=== PATIENT | male | born 1930 | race Caucasian/White ===

== ENCOUNTER 2016-05-09 08:28 | Inpatient (IN) | payer MEDICARE, OTHER ==
[2016-05-09 09:05] LABS: BASO % 0.1 % (0.2-1.0); EOS # 0.1 (0.0-0.5); EOS % 0.6 % (0.9-2.9); HEMATOCRIT 41.7 % (32.0-52.0); HEMOGLOBIN 13.2 gm/l (14.0-18.0); IMM NEUT # 0.1 K/mm3 (0-0.2); IMM NEUT% 0.4 % (0-1); LYMPH % 6.5 % (15-45); MEAN CELL VOLUME 86.9 fl (80.0-94.0); MEAN CORPUSCULAR HEMOGLOBIN 27.5 pg (27.0-31.0); MEAN CORPUSCULAR HGB CONC 31.7 g/dl (33.0-37.0); MEAN PLATELET VOLUME 10.8 fl (7.4-10.4); MONO # 0.9 (0.0-0.8); MONO % 5.9 % (4-12); NEUT % 86.5 % (43-75); PLATELET COUNT 250 K/mm3 (130-400); RED CELL DISTRIBUTION WIDTH 15.3 % (11.5-14.5)
[2016-05-09] MEDS ORDERED: LACTATED RINGERS 3,000 ML ONE (09:11)
[2016-05-09 09:19] LABS: ALB/GLOB RATIO 0.8 (>1.0); ALBUMIN 3.3 gm/dL (3.5-5.7); CALCIUM 8.7 mg/dL (8.6-10.3)
--- NOTE | 2016-05-09 09:35 | RAD ---
Exam: Two-view chest COMPARISON: 11/24/2015, 01/28/2014 and 06/08/2013 INDICATION: Fever, cough. History of COPD. Findings: AP and lateral views of the chest were obtained. Lung volumes are low on today's exam. Cardiac silhouette does not appear enlarged. There are chronic bibasilar predominant interstitial opacities, right greater than left, and bibasilar predominant. These appear slightly increased although this may be artifact, related to difference in aeration. There is some thickening of the fissures without pleural effusion. There is minor left basilar atelectasis. There is mild asymmetric groundglass opacity within the right lower lobe without consolidation. Bones of the chest wall within normal limits. IMPRESSION: Mild asymmetric groundglass opacity within the right lower lobe compared which is more pronounced compared with the 11/24/2015 exam which does raise concern for pneumonia given patient history. This is superimposed on chronic pulmonary fibrosis. No pleural effusion.
[2016-05-09] MEDS ORDERED: CEFTRIAXONE 1 GRAM DUPLEX 50 ML IV ONE ×2 (09:58→16:00)
[2016-05-09 10:03] LABS: SPECIFIC GRAVITY 1.015 (1.001-1.030); URINE BILIRUBIN NEGATIVE (NEGATIVE); URINE BLOOD TRACE (NEGATIVE); URINE GLUCOSE (UA) NEGATIVE (NEGATIVE); URINE LEUKOCYTE ESTERASE NEGATIVE (NEGATIVE); URINE NITRITE NEGATIVE (NEGATIVE); URINE PROTEIN 1+ (NEGATIVE); URINE UROBILINOGEN NORMAL (0-1 mg/dl)
[2016-05-09] MEDS ORDERED: AZITHROMYCIN 500 MG VIAL ONE (10:03)
[2016-05-09] MEDS ORDERED: SODIUM CHLORIDE 0.9% 250 ML IV ONE (10:03)
[2016-05-09 10:05] LABS: URINE APPEARANCE CLEAR; URINE COLOR YELLOW
[2016-05-09 10:12] LABS: URINE AMORPHOUS SEDIMENT FEW; URINE BACTERIA FEW; URINE MUCUS 1+; URINE WBC 0-1 /hpf
[2016-05-09] MEDS ORDERED: MENTHOL/CETYLPYRD 1 EACH LOZENGE PO PRN (12:25)
[2016-05-09] MEDS ORDERED: MAGNESIUM HYDROXIDE 30 ML UDCUP PO PRN ×2 (12:25→15:14)
[2016-05-09] MEDS ORDERED: BISACODYL 10 MG SUP PR PRN (12:25)
[2016-05-09] MEDS ORDERED: BLISTEX LIPSTICK 1 EACH TP PRN (12:25)
[2016-05-09] MEDS ORDERED: BISACODYL 5 MG TABLET.EC PO PRN (12:25)
[2016-05-09] MEDS: ENOXAPARIN SODIUM 40 MG/0.4 ML SYRINGE SUB-Q SCH (13:29)
[2016-05-09] MEDS ORDERED: ACETAMINOPHEN 325 MG TABLET PO PRN (15:14)
[2016-05-09] MEDS ORDERED: MAG HYDROX/AL HYDROX/SIMETH 30 ML UDCUP PO PRN (15:14)
[2016-05-09] MEDS ORDERED: HALOPERIDOL 0.5 MG TABLET PO PRN (15:14)
[2016-05-09] MEDS ORDERED: ALBUTEROL/IPRATROPIUM 2.5/0.5 MG 3 ML/EACH DOSE NEB PRN (15:24)
[2016-05-09] MEDS: POTASSIUM CHLORIDE 10 MEQ TAB.SR PO SCH (15:36)
[2016-05-09] MEDS: FUROSEMIDE 20 MG TABLET PO SCH (15:36)
[2016-05-09] MEDS: SODIUM CHLORIDE 0.9% 100 ML IV PRN (16:50)
[2016-05-09] MEDS ORDERED: SODIUM CHLORIDE 0.9% FLUSH 10 ML ONE (17:25)
[2016-05-09 17:43] LABS: TROPONIN I 0.02 ng/ml (0.0-0.06)
[2016-05-09 17:52] LABS: THYROID STIMULATING HORMONE 2.56 uIU/ml (0.34-5.60)
--- NOTE | 2016-05-09 18:32 | HP ---
ZAYNAB ZAVALA [id number] DATE OF ADMISSION: 05/09/2016 CHIEF COMPLAINT: Altered mental status. HISTORY OF PRESENT ILLNESS: The patient is an 85-year-old male reported to have altered mental status, today was referred to the ER, and in the ER was noted to have some change to his chest x-ray and thought to have possible pneumonia, along with his elevated white count. He received antibiotics in the ER. At this time he reports feeling well and has just finished his lunch. He was previously hospitalized on 01/28/2014 for confusion and had a urinary tract infection at that time. PAST MEDICAL HISTORY: Taken from outpatient records indicates: 1. Chronic kidney disease Stage-3. 2. Dementia. 3. Diastolic dysfunction. 4. Mildly elevated glucose. 5. Hypertension. 6. Hyperlipidemia. 7. Hypothyroidism. 8. Pulmonary fibrosis. PAST SURGICAL HISTORY: Negative, except for cataracts. ALLERGIES: No known drug allergies. MEDICATIONS: Taken from his MAR show: 1. Maalox PRN. 2. Acetaminophen 650 mg every four hours as needed for headache, pain or fever. 3. Haloperidol 2 mg two by mouth as needed loose stools. 4. Yepv-vl-aidutadf as needed. 5. Haloperidol 0.5 mg every 12 hours as needed for severe agitation. 6. Levothyroxine 50 mcg daily. 7. Donepezil 10 mg daily. 8. Furosemide 20 mg daily on Saturday, Saturday and Saturday. 9. Doxazosin 2 mg by mouth at bedtime. 10. Pravastatin 20 mg by mouth at bedtime. 11. Three liters of oxygen at all times. 12. Potassium chloride 10 mEq by mouth on Saturday, Saturday and Saturday. 13. Acetaminophen 650 mg scheduled three times a day. 14. Advair 250/50 one puff twice a day. 15. Haloperidol 0.5 mg by mouth twice a day schedule. CODE STATUS: He is DNR status. 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 He is a resident at the Memory Care Unit at [facility]. FAMILY HISTORY: Not obtained. REVIEW OF SYSTEMS: At this time he reports his eyes are okay. Ears are okay. Nose is okay. Mouth is okay. He denies cough. Denies heart complaints. Denies chest pain. Denies stomach complaints. Denies constipation. Denies diarrhea. Denies arm or leg complaints. Denies urinary complaints. Review of the IBEX note from the ER indicates that there is a report of low blood pressure and fever at the care facility, with a cough. PHYSICAL EXAMINATION: VITAL SIGNS: In the ER on presentation he had a temperature of 99.4, blood pressure 91/55, pulse 91 and respirations 20. At follow-up on the floor his temperature is 98.6, pulse 56, blood pressure 130/63, respirations 17, and 96% on 2.5 liters. HEENT: His head is normocephalic, atraumatic. Eyes are unremarkable. Ears have a hearing aid present on the left, absent on the right. The tympanic membrane is grossly unremarkable on the right, some cerumen is noted. Nose is unremarkable. Oropharynx, has dentures. NECK: Supple, without masses or adenopathy. LUNGS: Have some crackles noted and some decreased air movement throughout. HEART: Regular rate and rhythm, without murmur. ABDOMEN: Soft, nontender and nondistended. GENITOURINARY: Exam is deferred. EXTREMITIES: Lower extremities without edema. Heels are unremarkable. Arms are unremarkable. Pulses are good throughout. Color is good. Capillary refill is good throughout. NEUROLOGIC: Cranial nerves are intact. Speech is appropriate. He is [id number] and his ability to give a history appears to be quite limited by his dementia. He is not oriented, but is very pleasant, is able to feed himself well, and does a very good job finishing-off his lunch. LABS: White count 15.0, hemoglobin 13.2, hematocrit 41.7 and platelets 250. Lactate 0.8. Chemistry profile with a sodium of 136, potassium 4.2, BUN of 24, creatinine 1.3, glucose 132, bilirubin 0.5, AST of 11, ALT of 8, alkaline phosphatase 100, albumin 3.3 and globulin 4.0. Urinalysis 1+ protein, negative glucose, negative ketones, negative leukocyte esterase, negative nitrite, 2-3 red cells, 0-1 white cells, 2-4 epithelial cells and few bacteria. Influenza testing is negative. IMAGING: Chest x-ray shows mild asymmetric ground-glass opacity within the right lower lobe compared with previous is more pronounced versus 11/24/2015, which does raise concern for pneumonia given the patient's history. This is superimposed on chronic pulmonary fibrosis. No pleural effusion. ASSESSMENT: 1. Suspected altered mental status with elevated white count and possible chest x-ray changes showing a community-acquired pneumonia, bacterial cause, unspecified organism. We will be treating his community-acquired pneumonia with Rocephin, and although he received azithromycin initially, we will be using doxycycline due to his use of Haldol. At this moment he appears to be stable. Will consider for a CT of chest to follow-up on his pulmonary fibrosis. 2. Dementia. Continue medications. 3. Pulmonary fibrosis. Will continue on medications and use nebs as needed. 4. DNR status. This is reviewed and ordered. 5. Hypertension. Will continue on medications. 6. History of chronic kidney disease. His creatinine is 1.3, with a GFR of 53, indicating Stage-3 chronic kidney disease. 7. He has a history of diastolic CHF. Will be checking a BNP, as well as a troponin. 8. History of elevated glucose. Previous A1C was 6.3 just this month. 9. Venous thrombosis prophylaxis. Anticipate use of enoxaparin. cc: Dr. Michael Arzate, BENJI
[2016-05-09] MEDS: FLUTICASONE/SALMETEROL 250/50 14 PUFFS/DISK IH SCH (19:38)
[2016-05-09] MEDS: PRAVASTATIN SODIUM 20 MG TABLET PO SCH (20:01)
[2016-05-09] MEDS: DOXYCYCLINE HYCLATE 100 MG TABLET PO SCH (20:01)
[2016-05-09] MEDS: DOCUSATE SODIUM 100 MG CAPSULE PO SCH (20:01)
[2016-05-10 06:42] LABS: ABSOLUTE NEUTROPHIL COUNT 7.4 K/mm3 (1.8-7.7); BASO % 0.4 % (0.2-1.0); EOS # 0.1 (0.0-0.5); EOS % 1.4 % (0.9-2.9); HEMATOCRIT 35.5 % (32.0-52.0); HEMOGLOBIN 11.4 gm/l (14.0-18.0); IMM NEUT% 0.4 % (0-1); LYMPH # 1.6 (1.0-4.8); LYMPH % 15.2 % (15-45); MEAN CELL VOLUME 86.2 fl (80.0-94.0); MEAN CORPUSCULAR HEMOGLOBIN 27.7 pg (27.0-31.0); MEAN CORPUSCULAR HGB CONC 32.1 g/dl (33.0-37.0); MEAN PLATELET VOLUME 11.1 fl (7.4-10.4); MONO # 1.1 (0.0-0.8); MONO % 10.8 % (4-12); NEUT % 71.8 % (43-75); PLATELET COUNT 231 K/mm3 (130-400); RED CELL DISTRIBUTION WIDTH 15.1 % (11.5-14.5)
[2016-05-10 07:03] LABS: CALCIUM 8.3 mg/dL (8.6-10.3)
[2016-05-10] MEDS: LEVOTHYROXINE SODIUM 50 MCG TABLET PO SCH (07:41)
[2016-05-10] MEDS: DOCUSATE SODIUM 100 MG CAPSULE PO SCH ×3 (08:09→20:35)
[2016-05-10] MEDS: FLUTICASONE/SALMETEROL 250/50 14 PUFFS/DISK IH SCH ×3 (08:09→19:17)
[2016-05-10] MEDS: DONEPEZIL HCL 5 MG TABLET PO SCH (08:10)
[2016-05-10] MEDS: DOXYCYCLINE HYCLATE 100 MG TABLET PO SCH ×2 (08:10→20:19)
[2016-05-10] MEDS: DOXAZOSIN MESYLATE 2 MG TABLET PO SCH (08:19)
[2016-05-10] MEDS ORDERED: HALOPERIDOL 0.5 MG TABLET PO SCH (09:00)
[2016-05-10] MEDS ORDERED: LOPERAMIDE HCL 2 MG CAPSULE PO PRN (09:00)
[2016-05-10 10:14] VITALS: BMI 37.5
[2016-05-10] MEDS: CEFTRIAXONE 2 GRAM DUPLEX 50 ML IV SCH (10:19)
--- NOTE | 2016-05-10 11:55 | PDOC43 ---
- Subjective Chief Complaint: pneumonia Somnolent this AM. No problems overnight as per RN. - Objective Vital Signs Temperature 100.1 F 05/10/16 07:54 Pulse Rate 74 05/10/16 08:15 Respiratory Rate 19 05/10/16 07:54 Blood Pressure 133/61 05/10/16 08:15 O2 Saturation by Pulse Oximetry 91 05/10/16 07:54 Oxygen Delivery Method Nasal Cannula Oxygen Flow Rate 3 Intake and Output 05/09/16 05/10/16 05/11/16 06:59 06:59 06:59 Intake Total 2450 Output Total 1127 Balance 1323 General: Other (Somnolent but NAD.) HEENT: Atraumatic Lungs: Other (Scattered rales and distant sounds.) Cardiovascular: Regular Rate and Rhythm Abdomen: Soft, Normal Bowel Sounds, Non-Distended, No Rebounding Extremities: Normal Pulses, No Edema Laboratory 05/10/16 06:00 05/10/16 06:00 05/10/16 06:00 RBC 4.12 L MCHC 32.1 L RDW 15.1 H Estimated GFR 58 L Calcium 8.3 L Current Medications: Current meds reviewed in EMR. - Problems: Assessment/Plan (1) Bacterial pneumonia Status: Acute Assessment/Plan: Appears to have RLL pna superimposed on severe COPD/pulm fibrosis. Baseline on 3L O2. Somnolent after receiving haldol this AM. Was doing well otherwise before haldol tx. Concern for possible medication related oversedation leading to aspiration pna. Will con't rocephin/doxy and add flagyl and decrease scheduled haldol. Supportive care otherwise. (2) Dementia Qualifiers: Dementia type: unspecified type Dementia behavioral disturbance: with behavioral disturbance Qualifier Code: (F03.91) Unspecified dementia with behavioral disturbance Status: Chronic Assessment/Plan: On haldol chronically- concern for oversedation as above. Will hold for now. Supportive care. (3) Pulmonary fibrosis Status: Chronic Assessment/Plan: Chronic severe O2 dependant COPD/Fibrosis. As above. (4) HTN (hypertension) Qualifiers: Hypertension type: essential hypertension Qualifier Code: (I10) Essential (primary) hypertension Status: Chronic Assessment/Plan: Stable. Con't usual meds. (5) Hypothyroidism Qualifiers: Hypothyroidism type: unspecified Qualifier Code: (E03.9) Hypothyroidism , unspecified Status: Chronic Assessment/Plan: Stable. Con't usual meds. VTE Prophylaxis: Lovenox Disposition: Unknown.
[2016-05-10] MEDS ORDERED: ALBUTEROL NEB 2.5 MG/3 ML VIAL.NEB NEB PRN (11:57)
[2016-05-10] MEDS ORDERED: PUMP TUBING ONE (12:44)
[2016-05-10] MEDS: ENOXAPARIN SODIUM 40 MG/0.4 ML SYRINGE SUB-Q SCH (12:52)
[2016-05-10] MEDS: METRONIDAZOLE 500 MG/NS 100 ML 500 MG in Premix (NS) 100 ml 1 EACH IV SCH ×2 (12:53→20:35)
[2016-05-10] MEDS: SODIUM CHLORIDE 0.9% 100 ML IV PRN (12:53)
[2016-05-10] MEDS: PRAVASTATIN SODIUM 20 MG TABLET PO SCH (20:18)
[2016-05-11] MEDS: METRONIDAZOLE 500 MG/NS 100 ML 500 MG in Premix (NS) 100 ml 1 EACH IV SCH ×3 (04:36→20:20)
[2016-05-11 05:55] LABS: HEMATOCRIT 35.4 % (32.0-52.0); HEMOGLOBIN 11.3 gm/l (14.0-18.0); MEAN CELL VOLUME 86.3 fl (80.0-94.0); MEAN CORPUSCULAR HEMOGLOBIN 27.6 pg (27.0-31.0); MEAN CORPUSCULAR HGB CONC 31.9 g/dl (33.0-37.0); RED CELL DISTRIBUTION WIDTH 14.9 % (11.5-14.5)
[2016-05-11 06:21] LABS: CALCIUM 8.3 mg/dL (8.6-10.3)
[2016-05-11] MEDS: LEVOTHYROXINE SODIUM 50 MCG TABLET PO SCH (07:42)
--- NOTE | 2016-05-11 09:32 | PDOC43 ---
- Subjective Chief Complaint: pneumonia Baseline MS all day yesterday as per RN and family. This AM is sleepy but arousable- suspect baseline. Subjective: Denies Chest Pain, Denies Abdominal Pain, Denies Nausea, Denies Vomiting, Denies Fever, Denies Chills - Objective Vital Signs Temperature 98.2 F 05/11/16 07:19 Pulse Rate 65 05/11/16 07:19 Respiratory Rate 20 05/11/16 07:30 Blood Pressure 100/55 05/11/16 07:19 O2 Saturation by Pulse Oximetry 94 05/11/16 07:19 Oxygen Delivery Method Nasal Cannula Oxygen Flow Rate 3 Intake and Output 05/10/16 05/11/16 05/12/16 06:59 06:59 06:59 Intake Total 2450 855 Output Total 1127 1235 Balance 1323 -380 General: Other (Sleepy but arousable. Answers questions.) Lungs: Other (Distant sounds.) Cardiovascular: Regular Rate and Rhythm Abdomen: Soft, Normal Bowel Sounds, Non-Distended, No Tenderness Extremities: Normal Pulses, No Edema Laboratory 05/11/16 05:30 05/11/16 05:30 Current Medications: Current meds reviewed in EMR. - Problems: Assessment/Plan (1) Bacterial pneumonia Status: Acute Assessment/Plan: RLL pna superimposed on severe COPD/pulm fibrosis. Baseline on 3L O2. Still holding usual haldol and pt at presumed baseline MS- sleepy in AM today. Concern for possible medication related oversedation leading to aspiration pna. Will con't rocephin/doxy/flagyl. Supportive care otherwise. (2) Dementia Qualifiers: Dementia type: unspecified type Dementia behavioral disturbance: with behavioral disturbance Qualifier Code: (F03.91) Unspecified dementia with behavioral disturbance Status: Chronic Assessment/Plan: On haldol chronically- concern for oversedation as above. Will hold for now. Supportive care. (3) Pulmonary fibrosis Status: Chronic Assessment/Plan: Chronic severe O2 dependant COPD/Fibrosis. As above. (4) HTN (hypertension) Qualifiers: Hypertension type: essential hypertension Qualifier Code: (I10) Essential (primary) hypertension Status: Chronic Assessment/Plan: Stable. Con't usual meds. (5) Hypothyroidism Qualifiers: Hypothyroidism type: unspecified Qualifier Code: (E03.9) Hypothyroidism , unspecified Status: Chronic Assessment/Plan: Stable. Con't usual meds. VTE Prophylaxis: Lovenox Disposition: Anticipate return to memory care in 1-2 days.
[2016-05-11] MEDS: SODIUM CHLORIDE 0.9% 100 ML IV PRN (09:46)
[2016-05-11] MEDS: DOXYCYCLINE HYCLATE 100 MG TABLET PO SCH ×2 (09:47→20:20)
[2016-05-11] MEDS: DOXAZOSIN MESYLATE 2 MG TABLET PO SCH (09:47)
[2016-05-11] MEDS: DOCUSATE SODIUM 100 MG CAPSULE PO SCH ×2 (09:47→20:21)
[2016-05-11] MEDS: DONEPEZIL HCL 5 MG TABLET PO SCH (09:47)
[2016-05-11] MEDS: FLUTICASONE/SALMETEROL 250/50 14 PUFFS/DISK IH SCH ×2 (09:54→20:21)
[2016-05-11] MEDS: CEFTRIAXONE 2 GRAM DUPLEX 50 ML IV SCH (09:58)
[2016-05-11 10:08] LABS: ARTERIAL BLOOD GAS BASE EXCESS 1.7 mmol/L (-2.0-2.0); ARTERIAL BLOOD GAS HCO3 25.6 mmol/L (22.0-28.0); ARTERIAL BLOOD GAS PCO2 37.7 mmHg (35.0-45.0); ARTERIAL BLOOD GAS pH 7.449 (7.350-7.450)
--- NOTE | 2016-05-11 11:11 | PDOC36 ---
Provider Note Subject: addendum Note: Patient uses O2 at home chronically, so would presume pt has chronic respiratory failure.
[2016-05-11] MEDS ORDERED: FLUTICASONE/SALMETEROL 250/50 14 PUFFS/DISK IH SCH (11:15)
[2016-05-11] MEDS ORDERED: PUMP TUBING ONE (13:18)
[2016-05-11] MEDS: ENOXAPARIN SODIUM 40 MG/0.4 ML SYRINGE SUB-Q SCH (13:31)
[2016-05-11] MEDS: FUROSEMIDE 20 MG TABLET PO SCH (14:47)
[2016-05-11] MEDS: POTASSIUM CHLORIDE 10 MEQ TAB.SR PO SCH (14:47)
[2016-05-11] MEDS: PRAVASTATIN SODIUM 20 MG TABLET PO SCH (20:21)
[2016-05-12] MEDS ORDERED: SODIUM CHLORIDE 0.9% 1,000 ML IV SCH (03:00)
[2016-05-12] MEDS: METRONIDAZOLE 500 MG/NS 100 ML 500 MG in Premix (NS) 100 ml 1 EACH IV SCH ×3 (05:44→20:43)
[2016-05-12] MEDS: ACETAMINOPHEN 325 MG TABLET PO PRN ×2 (06:31→19:40)
[2016-05-12] MEDS: LEVOTHYROXINE SODIUM 50 MCG TABLET PO SCH (07:12)
[2016-05-12] MEDS: DOXAZOSIN MESYLATE 2 MG TABLET PO SCH (08:52)
[2016-05-12] MEDS: DOCUSATE SODIUM 100 MG CAPSULE PO SCH ×2 (08:57→20:43)
[2016-05-12] MEDS: DONEPEZIL HCL 5 MG TABLET PO SCH (08:57)
[2016-05-12] MEDS: FLUTICASONE/SALMETEROL 250/50 14 PUFFS/DISK IH SCH ×2 (08:57→20:48)
[2016-05-12] MEDS: DOXYCYCLINE HYCLATE 100 MG TABLET PO SCH ×2 (08:57→20:43)
[2016-05-12] MEDS: CEFTRIAXONE 2 GRAM DUPLEX 50 ML IV SCH (09:33)
[2016-05-12] MEDS: SODIUM CHLORIDE 0.9% 100 ML IV PRN (12:39)
[2016-05-12] MEDS: ENOXAPARIN SODIUM 40 MG/0.4 ML SYRINGE SUB-Q SCH (12:39)
--- NOTE | 2016-05-12 16:31 | PDOC43 ---
- Subjective Chief Complaint: pneumonia per family no new issues. pt eating a bit today, better color and more alert. they note he appears more himself. no new complaints. no asking for nebs Subjective: Reports Pain Tolerable, Reports Tolerating Diet Well, Reports Urinating Without Difficulty, Denies Adequate Oral Intake, Denies Shortness of Breath, Denies Cough, Denies Chest Pain, Denies Abdominal Pain, Denies Nausea, Denies Vomiting, Denies Fever, Denies Chills - Objective Vital Signs Temperature 98.0 F 05/12/16 14:16 Pulse Rate 64 05/12/16 14:16 Respiratory Rate 16 05/12/16 14:16 Blood Pressure 114/62 05/12/16 14:16 O2 Saturation by Pulse Oximetry 95 05/12/16 14:16 Oxygen Delivery Method Nasal Cannula Oxygen Flow Rate 4 Intake and Output 05/10/16 05/11/16 05/12/16 23:59 23:59 23:59 Intake Total 290 330 2291 Output Total 1267 1469 531 Balance -327 -751 1024 General: Alert, Cooperative, No Oriented x3 (nonverbal today), No Acute Distress HEENT: Atraumatic, Mucous membr. moist/pink Lungs: Diminished at Bases, No Clear to Auscultation Bilaterally (diffuse wheezes), No Normal Air Movement Cardiovascular: Regular Rate and Rhythm, Normal S1, Normal S2, No Murmur Abdomen: Soft, Normal Bowel Sounds, Non-Distended, No Tenderness Extremities: No Cyanosis, No Edema, No Tenderness Skin: Warm, Dry, Intact Laboratory 05/11/16 05:30 05/11/16 05:30 Current Medications: Current meds reviewed in EMR. - Problems: Assessment/Plan (1) Bacterial pneumonia Status: Acute Assessment/Plan: RLL pna superimposed on severe COPD/pulm fibrosis. Baseline on 3L O2. Still holding usual haldol and pt at presumed baseline MS- sleepy in AM today. Concern for possible medication related oversedation leading to aspiration pna. Will con't rocephin/doxy/flagyl. Supportive care otherwise. still on 4L NC O2 (2) Pulmonary fibrosis Status: Chronic Assessment/Plan: Chronic severe O2 dependant COPD/Fibrosis. As above. (3) Dementia Qualifiers: Dementia type: unspecified type Dementia behavioral disturbance: with behavioral disturbance Qualifier Code: (F03.91) Unspecified dementia with behavioral disturbance Status: Chronic Assessment/Plan: On haldol chronically- concern for oversedation as above. Will hold for now. Supportive care. (4) HTN (hypertension) Qualifiers: Hypertension type: essential hypertension Qualifier Code: (I10) Essential (primary) hypertension Status: Chronic Assessment/Plan: Stable. Con't usual meds. (5) Hypothyroidism Qualifiers: Hypothyroidism type: unspecified Qualifier Code: (E03.9) Hypothyroidism , unspecified Status: Chronic Assessment/Plan: Stable. Con't usual meds. VTE Prophylaxis: Lovenox Disposition: Anticipate return to memory care in 2-3 days.
[2016-05-12] MEDS: ALBUTEROL/IPRATROPIUM 2.5/0.5 MG 3 ML/EACH DOSE NEB SCH (19:45)
[2016-05-12] MEDS: PRAVASTATIN SODIUM 20 MG TABLET PO SCH (20:43)
[2016-05-13] MEDS: METRONIDAZOLE 500 MG/NS 100 ML 500 MG in Premix (NS) 100 ml 1 EACH IV SCH ×3 (04:44→20:44)
[2016-05-13] MEDS: LEVOTHYROXINE SODIUM 50 MCG TABLET PO SCH (07:25)
[2016-05-13] MEDS: FLUTICASONE/SALMETEROL 250/50 14 PUFFS/DISK IH SCH ×2 (07:25→20:44)
[2016-05-13] MEDS: DONEPEZIL HCL 5 MG TABLET PO SCH (07:25)
[2016-05-13] MEDS: DOXAZOSIN MESYLATE 2 MG TABLET PO SCH (08:22)
[2016-05-13] MEDS: DOCUSATE SODIUM 100 MG CAPSULE PO SCH ×2 (08:37→20:44)
[2016-05-13] MEDS: DOXYCYCLINE HYCLATE 100 MG TABLET PO SCH ×2 (08:37→20:44)
[2016-05-13] MEDS: ALBUTEROL/IPRATROPIUM 2.5/0.5 MG 3 ML/EACH DOSE NEB SCH ×3 (09:39→17:12)
--- NOTE | 2016-05-13 09:56 | PDOC43 ---
- Subjective Chief Complaint: pneumonia Wakes to voice but no verbal response. - Objective Vital Signs Temperature 98.9 F 05/13/16 07:34 Pulse Rate 60 05/13/16 07:34 Respiratory Rate 18 05/13/16 07:34 Blood Pressure 90/44 05/13/16 08:41 O2 Saturation by Pulse Oximetry 94 05/13/16 07:34 Oxygen Delivery Method Nasal Cannula Oxygen Flow Rate 4 Intake and Output 05/12/16 05/13/16 05/14/16 06:59 06:59 06:59 Intake Total 553 2105 Output Total 1324 339 Balance -771 1766 General: Alert, No Oriented x3, No Cooperative, No Acute Distress HEENT: Mucous membr. moist/pink Lungs: Clear to Auscultation Bilaterally Cardiovascular: Regular Rate and Rhythm Abdomen: Soft, Normal Bowel Sounds, No Tenderness, No Masses Extremities: Normal Pulses, No Edema Skin: Normal Color Neurological: Other (no verbal response) Psych/Mental Status: Flat Affect Laboratory 05/11/16 05:30 05/11/16 05:30 Current Medications: Current meds reviewed in EMR. - Problems: Assessment/Plan (1) Bacterial pneumonia Status: Acute Assessment/Plan: RLL pna superimposed on severe COPD/pulm fibrosis present on admit. Baseline on 3L O2. Concern for possible medication related oversedation leading to aspiration pna so haloperidol is on hold. Will con't rocephin/doxy/flagyl, O2, Nebs. Supportive care otherwise. (2) Pulmonary fibrosis Status: Chronic Assessment/Plan: Chronic respiratory failure on O2 3L/min at baseline due to pulmonary fibrosis/ COPD. Continue Advair and nebs. (3) Dementia Qualifiers: Dementia type: unspecified type Dementia behavioral disturbance: with behavioral disturbance Qualifier Code: (F03.91) Unspecified dementia with behavioral disturbance Status: Chronic Assessment/Plan: Chronically treated with low dose haloperidol but med currently on hold due to sedation and concern for aspiration. 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 (4) HTN (hypertension) Qualifiers: Hypertension type: essential hypertension Qualifier Code: (I10) Essential (primary) hypertension Status: Chronic Assessment/Plan: Currently hypotensive due to acute illness, furosemide/K on hold, fluid bolus. (5) Hypothyroidism Qualifiers: Hypothyroidism type: unspecified Qualifier Code: (E03.9) Hypothyroidism , unspecified Status: Chronic Assessment/Plan: Stable. TSH normal on 05/09/16. Con't usual meds. (6) Obesity Qualifiers: Obesity severity: non-morbid Status: Chronic Assessment/Plan: With BMI of 36.7, complicates care as likely contributes to restrictive lung disease and may contribute to hypoventilation. (7) Anemia Qualifiers: Anemia type: other cause Other causes of anemia: chronic disease, kidney Qualifier Code: (N18.9) Chronic kidney disease, unspecified Status: Chronic Assessment/Plan: Chronic, mild, related to CKD. (8) CKD (chronic kidney disease) stage 3, GFR 30-59 ml/min Status: Chronic Assessment/Plan: At his baseline. VTE Prophylaxis: On enoxaparin and IPC boots. Disposition: Anticipate return to [facility] care in 1-2 days.
[2016-05-13] MEDS: CEFTRIAXONE 2 GRAM DUPLEX 50 ML IV SCH (09:57)
[2016-05-13] MEDS ORDERED: PUMP TUBING ONE (13:06)
[2016-05-13] MEDS: ENOXAPARIN SODIUM 40 MG/0.4 ML SYRINGE SUB-Q SCH (13:13)
[2016-05-13] MEDS: SODIUM CHLORIDE 0.9% 100 ML IV PRN (13:14)
[2016-05-13] MEDS: PRAVASTATIN SODIUM 20 MG TABLET PO SCH (20:44)
[2016-05-13] MEDS: ACETAMINOPHEN 325 MG TABLET PO PRN (20:44)
[2016-05-14] MEDS: ALBUTEROL/IPRATROPIUM 2.5/0.5 MG 3 ML/EACH DOSE NEB SCH ×3 (00:20→13:03)
[2016-05-14] MEDS: METRONIDAZOLE 500 MG/NS 100 ML 500 MG in Premix (NS) 100 ml 1 EACH IV SCH ×2 (05:30→13:39)
[2016-05-14] MEDS: DONEPEZIL HCL 5 MG TABLET PO SCH (08:38)
[2016-05-14] MEDS: LEVOTHYROXINE SODIUM 50 MCG TABLET PO SCH (08:38)
[2016-05-14] MEDS: DOXAZOSIN MESYLATE 2 MG TABLET PO SCH (09:10)
[2016-05-14] MEDS: DOXYCYCLINE HYCLATE 100 MG TABLET PO SCH (09:10)
[2016-05-14] MEDS: DOCUSATE SODIUM 100 MG CAPSULE PO SCH (09:11)
[2016-05-14] MEDS: FLUTICASONE/SALMETEROL 250/50 14 PUFFS/DISK IH SCH (09:15)
[2016-05-14] MEDS ORDERED: PUMP TUBING ONE (09:51)
[2016-05-14] MEDS: CEFTRIAXONE 2 GRAM DUPLEX 50 ML IV SCH (09:57)
[2016-05-14] MEDS: SODIUM CHLORIDE 0.9% 100 ML IV PRN (09:57)
--- NOTE | 2016-05-14 12:33 | RAD ---
Exam: Portable chest COMPARISON: 05/09/2016, 03/04/2016, 01/28/2014 INDICATION: Follow-up pneumonia. Findings: A semierect AP portable view of the chest was obtained. Examination is slightly limited due to motion artifact. Cardiac silhouette remains within normal limits. Lung volumes remain low, with bibasilar predominant pulmonary fibrosis. The previously described asymmetric opacity in the right lower lobe is not as pronounced. There is no focal airspace disease or pleural effusion. Bones of the chest wall within normal limits. IMPRESSION: The right basilar parenchymal opacity described on 05/09/2016 appears improved. Bibasilar predominant pulmonary fibrosis is again appreciated.
[2016-05-14 12:55] LABS: BASO % 0.2 % (0.2-1.0); EOS # 0.1 (0.0-0.5); EOS % 0.7 % (0.9-2.9); HEMATOCRIT 35.7 % (32.0-52.0); HEMOGLOBIN 11.2 gm/l (14.0-18.0); IMM NEUT% 0.4 % (0-1); LYMPH # 1.2 (1.0-4.8); LYMPH % 10.8 % (15-45); MEAN CELL VOLUME 87.1 fl (80.0-94.0); MEAN CORPUSCULAR HEMOGLOBIN 27.3 pg (27.0-31.0); MEAN CORPUSCULAR HGB CONC 31.4 g/dl (33.0-37.0); MEAN PLATELET VOLUME 10.4 fl (7.4-10.4); MONO # 1.4 (0.0-0.8); MONO % 12.7 % (4-12); NEUT % 75.2 % (43-75); PLATELET COUNT 243 K/mm3 (130-400); RED CELL DISTRIBUTION WIDTH 14.6 % (11.5-14.5)
[2016-05-14 13:30] VITALS: BP 87/50
[2016-05-14] MEDS: ENOXAPARIN SODIUM 40 MG/0.4 ML SYRINGE SUB-Q SCH (13:40)
--- NOTE | 2016-05-14 18:59 | DS ---
BETTINA ZAVALA [id number] DATE OF ADMISSION: May 09, 2016 DATE OF DISCHARGE: May 14, 2016 DISCHARGE DIAGNOSES: Acute bacterial pneumonia suspect due to aspiration involving the right lower lobe. OTHER DIAGNOSES: Include: 1. Chronic pulmonary fibrosis with chronic respiratory failure on 3 liters of oxygen by nasal cannula chronically. 2. Advanced senile dementia. 3. Chronic essential hypertension. 4. Hypothyroidism. 5. Obesity. 6. Chronic kidney disease stage 3 with anemia due to chronic kidney disease. SUMMARY OF ADMISSION AND HOSPITAL COURSE: The patient is an 85-year-old male with medical problems as listed above who presented with altered mental status. He normally resides at the memory care unit at [facility]. On presentation he was afebrile but had a low-grade temperature of 99.4. Chest x-ray showed right lower lobe infiltrate. White blood cell count was elevated at 15,000. Lactate was normal. Creatinine was 1.3. Influenza testing was negative. He was referred to the hospitalist service and admitted and treated with Rocephin and doxycycline. Metronidazole was added a few days after admission due to concerns about aspiration pneumonitis. He had speech therapy evaluation during his stay who recommended modification of his diet to pureed with nectar thick liquids. Patient's fragile medical condition remained stable, and he was felt to be stable for discharge by May 14, 2016. PHYSICAL EXAM: VITAL SIGNS: His discharge vital signs showed a temperature of 98.3, pulse 69, blood pressure is 135/61, respirations 18, oxygen saturation 94% on 3 liters by nasal cannula. Body mass index 37.0. Weight 97.8 kilograms. GENERAL: This is an elderly male in no acute distress. HEENT: Unremarkable. LUNGS: Show some faint rhonchi in the right base. CARDIOVASCULAR: Exam reveals a regular rate and rhythm without a murmur. ABDOMEN: Is soft, nontender, nondistended with positive bowel sounds. LABORATORY STUDIES: On the day of discharge, white blood cell count was 10.6, hemoglobin was 11.2, platelet count 243,000. Chemistry profile last performed on May 11, 2016 showed a creatinine of 1.2. DISPOSITION: Back to [facility] on oxygen at 3 liters by nasal cannula. DISCHARGE MEDICATIONS: Will include: 1. Doxycycline 100 mg orally twice daily for five more days. 2. Clindamycin 300 mg three times daily for ten days. 3. Pravachol 20 mg at bedtime. 4. Potassium chloride 10 mEq three times a week on Saturday, Saturday and Saturday. 5. Imodium 4 mg as needed for diarrhea. 6. Levothroid 50 mcg orally daily. 7. Lasix 20 mg orally on Saturday, Saturday and Saturday. 8. Doxazosin 2 mg orally daily. 9. Tylenol 650 mg every four hours as needed for pain or fever. 10. Aricept 10 mg daily. 11. Haldol 0.5 mg one tablet daily and 0.5 mg twice daily as needed for agitation. 12. Milk of Magnesia 30 mL daily as needed for constipation. 13. Advair Diskus inhaler 250/50 mcg one inhalation twice daily. 14. Maalox Plus 30 mL every four hours as needed for heartburn. ALLERGIES: DOCUMENTED TO MILK. CODE STATUS: DO NOT RESUSCITATE/DO NOT INTUBATE. DISCHARGE INSTRUCTIONS: He will get skin care, bowel care, podiatry care as per the [facility] protocol. Rehabilitation potential is poor. Prognosis is guarded. Cc: Shad Mendoza
== END 2016-05-14 18:30 | DRG 194 ==
LOC: ED 08:28 → MS 10:19
PROVIDERS: ADMIT Family Medicine; ATTEND Family Medicine
DX: J15.9 Unspecified bacterial pneumonia (principal); I13.0 Hypertensive heart and chronic kidney disease with heart failure and stage 1 through stage 4 chronic kidney disease, or unspecified chronic kidney disease; I50.30 Unspecified diastolic (congestive) heart failure; N18.3 Chronic kidney disease, stage 3 (moderate); D63.1 Anemia in chronic kidney disease; F03.90 Unspecified dementia, unspecified severity, without behavioral disturbance, psychotic disturbance, mood disturbance, and anxiety; E78.5 Hyperlipidemia, unspecified; E03.9 Hypothyroidism, unspecified; J84.10 Pulmonary fibrosis, unspecified; Z66 Do not resuscitate; Z99.81 Dependence on supplemental oxygen